=== PATIENT | male | born 1995 | race Caucasian/White ===

== ENCOUNTER 2018-05-05 18:38 | Emergency (ER) | payer OTHER ==
[2018-05-05 19:08] VITALS: BP 145/90
--- NOTE | 2018-05-05 20:19 | UC ---
Lower Extremity/Ankle HPI - HPI Summary HPI Summary: 22 y/o male presents to the urgent care c/o right foot pain for one week. Pt reports foot pain started s/p walking for many hrs w/ flip flops. Pain is 6/10 localized in the mid foot and heel. Pain is sharp when he walks and better at rest. He has taking ibuprofen 400mg PO at times which helps. Pt denies any injury, numbness or tingling sensation - History of Current Complaint Chief Complaint: UCLowerExtremity Stated Complaint: FOOT PAIN Time Seen by Provider: 05/05/18 20:01 Hx Obtained From: Patient Onset/Duration: Gradual Onset Pain Intensity: 6 - Allergies/Home Medications Allergies/Adverse Reactions: Allergies Allergy/AdvReac Type Severity Reaction Status Date / Time No Known Allergies Allergy Verified 05/05/18 19:09 Home Medications: Home Medications Albuterol HFA INHALER* [Ventolin HFA Inhaler*] 2 puff INH Q4HR PRN 05/05/18 [ History Confirmed 05/05/18] Budesonide Flexhaler 90 (NF) [Pulmicort Flexhaler 90 mcg/act (NF)] 1 puff INH BID 05/05/18 [History Confirmed 05/05/18] Cetirizine* [ZyrTEC 10 MG TAB*] 1 tab PO DAILY 05/05/18 [History Confirmed 05/05] PMH/Surg Hx/FS Hx/Imm Hx - Surgical History Surgical History: None - Social History Alcohol Use: Occasionally Substance Use Type: None Smoking Status (MU): Never Smoked Tobacco Physical Exam Vital Signs: Initial Vital Signs Temp 98.1 F 05/05/18 19:06 Pulse 97 05/05/18 19:06 Resp 12 05/05/18 19:06 BP 145/90 05/05/18 19:06 Pulse Ox 100 05/05/18 19:06 Lower Extremity Course/Dx - Differential Dx/Diagnosis Differential Diagnosis/HQI/PQRI: Fracture (Closed), Sprain, Strain, Tendonitis, Other - plantar fasciitis Provider Diagnoses: 1- RT foot pain. 2- Rt foot Plantar fasciitis. 3- elevated BP w/o Hx of HTN Discharge - Sign-Out/Discharge Documenting (check all that apply): Patient Departure - D/c home All imaging exams completed and their final reports reviewed: No Studies - Discharge Plan Condition: Stable Disposition: HOME Prescriptions: Ibuprofen TAB* [Motrin TAB* 600 MG] 600 mg PO Q6H PRN #30 tab PRN Reason: Pain Patient Education Materials: Plantar Fasciitis Exercises (GEN), Plantar Fasciitis (ED), Low-Sodium Diet (ED) Referrals: [facility] [Provider Group] - 3 Days Doug Lerner MD [Primary Care Provider] - 1 Week Additional Instructions: 1-Please take Ibuprofen PO q6-8hrs prn directed to alleviate pain and swelling. 2-Please apply ice, keep your foot immobilized with the Dov bandage and post-op shoe. Avoid strenuous exercise or standing for long periods of time 3- Please f/u with orthopedic from Sports Medicine in 3 days if not improvement of symptoms for further evaluation and treatment. 4-Your BP is elevated today. please decrease salt in your diet, monitor BP and if it continues to be elevated please f/u with your PCP for further management - Billing Disposition and Condition Condition: STABLE Disposition: Home
[2018-05-05] MEDS ORDERED: Ibuprofen TAB* 600 MG PO ONE (20:31)
== END 2018-05-05 20:45 | disposition home or self-care (01) ==
LOC: UCEAST 18:38
DX: M79.671 Pain in right foot (principal); M72.2 Plantar fascial fibromatosis; R03.0 Elevated blood-pressure reading, without diagnosis of hypertension
CPT/HCPCS: 99202; A9270-GY; G0463